=== PATIENT | female | born 1990 | race Hispanic/Latino ===

== ENCOUNTER 2023-08-02 20:27 | Emergency (ER) | payer MEDICAID, OTHER ==
[~2023-08-02] VITALS: Ht 157.5 cm; Wt 63.5 kg
[2023-08-02 22:49] LABS: BASOPHILS # (AUTO) 0.01 K/uL (0.00-0.20); BASOPHILS % (AUTO) 0.1 % (0.0-5.0); EOSINOPHILS # (AUTO) 0.13 K/uL (0.00-0.70); EOSINOPHILS % (AUTO) 1.6 % (0.0-8.0); HEMATOCRIT 37.4 % (36-48); IMMATURE GRANULOCYTE ABSOLUTE 0.03 K/uL (0-1); LYMPHOCYTES # (AUTO) 2.7 K/uL (1.0-4.8); LYMPHOCYTES % (AUTO) 32.7 % (21.0-51.0); MEAN CORPUSCULAR HEMOGLOBIN 31.6 pg (27.0-33.0); MEAN CORPUSCULAR HGB CONC 32.9 g/dL (32.0-36.0); MEAN CORPUSCULAR VOLUME 96.1 fL (79-99); MONOCYTES # (AUTO) 0.7 K/uL (0.1-1.0); MONOCYTES % (AUTO) 8.2 % (3.0-13.0); NEUTROPHILS # (AUTO) 4.7 K/uL (1.8-7.7); PLATELET COUNT (AUTO) 334 K/uL (130-400); RED BLOOD CELL COUNT(AUTO) 3.89 MIL/uL (4.00-5.50); RED CELL DISTRIBUTION WIDTH 11.9 % (11.0-15.5); WHITE BLOOD COUNT (AUTO) 8.3 K/uL (4.8-10.8)
[2023-08-02 23:03] LABS: CREATININE 0.5 mg/dL (0.5-1.5); POTASSIUM 3.6 mmol/L (3.5-5.1)
[2023-08-02 23:07] LABS: ALBUMIN 3.3 g/dL (3.5-5.0); BILIRUBIN,TOTAL 0.1 mg/dL (0.2-1.0); TOTAL PROTEIN, SERUM 7.3 g/dL (6.0-8.3)
[2023-08-03 00:04] LABS: THYROID STIMULATING HORMONE 2.2 uIU/mL (0.36-3.74)
[2023-08-03] MEDS ORDERED: IBUP-2077 PO (00:27)
[2023-08-03] MEDS ORDERED: ACET-2079 PO (00:27)
[2023-08-03 01:01] VITALS: BP 126/70; PULSE 80; RESP 18; O2SAT 97
== END 2023-08-03 01:00 | disposition home or self-care (01) ==
LOC: EDH 20:27
DX: N92.0 Excessive and frequent menstruation with regular cycle (principal); N94.6 Dysmenorrhea, unspecified; Z98.890 Other specified postprocedural states
CPT/HCPCS: 36415; 80053; 84443; 84703; 85025

== ENCOUNTER 2025-10-02 18:23 | Emergency (ER) | payer MEDICAID, OTHER ==
[~2025-10-02] VITALS: Ht 157.5 cm; Wt 54.4 kg
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
[2025-10-02 18:56] VITALS: BP 125/63; PULSE 87; RESP 19; TEMP 98.1; O2SAT 97
[2025-10-02] MEDS: CYCLOBENZAPRINE HCL 10 MG TABLET PO ONE (18:57)
== END 2025-10-02 19:01 | disposition home or self-care (01) ==
LOC: EDH 18:23
DX: M25.511 Pain in right shoulder (principal); M25.512 Pain in left shoulder; Z98.51 Tubal ligation status; V89.2XXA Person injured in unspecified motor-vehicle accident, traffic, initial encounter; Y93.I9 Activity, other involving external motion; Y92.410 Unspecified street and highway as the place of occurrence of the external cause; Y99.8 Other external cause status
CPT/HCPCS: 99283